=== PATIENT | male | born 1995 | race Two or more races ===

== ENCOUNTER 2024-08-06 17:31 | Emergency (ER) | payer SELFPAY ==
[~2024-08-06] VITALS: Ht 172.7 cm; Wt 63.5 kg
[2024-08-06 17:42] VITALS: BP 115/78; TEMP 99.9; O2SAT 98
[2024-08-06] MEDS ORDERED: IBUP-1957 PO (20:44)
[2024-08-06] MEDS ORDERED: ACET-2605 PO (20:44)
[2024-08-06] MEDS ORDERED: GUAI-946 PO (20:44)
[2024-08-06] MEDS ORDERED: ACETAMINOPHEN ES 500 MG TABLET ONE (20:48)
[2024-08-06] MEDS ORDERED: IBUPROFEN 400 MG TABLET ONE (20:48)
[2024-08-06] MEDS: IBUPROFEN 400 MG TABLET PO ONE (20:52)
[2024-08-06] MEDS: ACETAMINOPHEN ES 500 MG TABLET PO ONE (20:52)
== END 2024-08-06 20:58 | disposition home or self-care (01) ==
LOC: ER 17:34
DX: J02.9 Acute pharyngitis, unspecified (principal); R50.9 Fever, unspecified; R05.9 Cough, unspecified; R42 Dizziness and giddiness

== ENCOUNTER 2024-08-14 12:35 | Emergency (ER) | payer MEDICAID ==
[~2024-08-14] VITALS: Ht 172.7 cm; Wt 63.5 kg
[~2024-08-14 12:35] MED LIST: ACET-2605 PO; GUAI-946 PO; IBUP-1957 PO
[2024-08-14 13:00] VITALS: BP 107/76; TEMP 97.7
[2024-08-14 13:29] VITALS: O2SAT 98
== END 2024-08-14 13:40 | disposition home or self-care (01) ==
LOC: ER 13:31
DX: J02.9 Acute pharyngitis, unspecified (principal); Z60.2 Problems related to living alone; R05.9 Cough, unspecified